=== PATIENT | male | born 1960 | race Caucasian/White ===

== ENCOUNTER 2017-03-14 09:41 | Inpatient (IN) | payer OTHER ==
[~2017-03-14] VITALS: Ht 177.8 cm; Wt 92.1 kg
[2017-03-14 10:29] LABS: EOSINOPHIL (%) 0.2 % (0-5); HEMATOCRIT 43.6 % (38.0-50.0); IMMATURE GRANULOCYTE (%) 0.4 % (0.0-0.7); INSTRUMENT ABS NEUTROPHIL CT 6.9 K/uL; LYMPHOCYTE COUNT 2.2 K/uL (1.0-2.8); MCH 29.8 PG (29.0-34.0); MCHC 36.5 G/DL (30.0-36.0); MCV 81.6 FL (86-99); MEAN PLAT.VOLUME 12.4 uM^3 (9.0-12.4); MONOCYTE (%) 6.5 % (3-12); MONOCYTE COUNT 0.6 K/uL (0-0.8); NEUTROPHIL (%) 70.6 % (45-76); NEUTROPHIL COUNT 6.9 K/uL (1.8-6.4); PLATELET COUNT 207 K/uL (156-360); RBC DIS.WIDTH-CV 11.6 % (11.8-14.6); RBC DIS.WIDTH-SD 33.7 % (39-53); RED BLOOD COUNT 5.34 M/uL (4.00-5.50); WHITE BLOOD COUNT 9.8 K/uL (4.1-10.2)
[2017-03-14 10:38] LABS: CHLORIDE 90 mEq/L (99-109); POTASSIUM 3.3 mEq/L (3.7-5.4); SODIUM 136 mEq/L (136-147)
[2017-03-14 10:42] LABS: ANION GAP 23 MEQ/L (2-14)
[2017-03-14 10:43] LABS: GLUCOSE 658 mg/dL (70-99); TOTAL BILIRUBIN 1.1 mg/dL (0.0-1.0)
[2017-03-14 10:44] LABS: ALKALINE PHOSPHATASE 52 IU/L (3-129); GFR ESTIMATE (CALCULATED) 44 mL/min/
[2017-03-14 10:45] LABS: UREA NITROGEN (BUN) 29 mg/dL (9-23)
[2017-03-14 10:47] LABS: TROP-I INTERPRETATION NEGATIVE; TROPONIN-I < 0.01 ng/mL (0.0-0.30)
[2017-03-14] MEDS ORDERED: BENTYL20 MG PO (11:16)
[2017-03-14] MEDS ORDERED: FENOFIBRATE145 M1 PO (11:16)
[2017-03-14] MEDS ORDERED: ZESTORETIC 20-1 EAC1 PO (11:17)
[2017-03-14] MEDS ORDERED: TAMSULOSIN HCL0.4 MG PO (11:17)
[2017-03-14] MEDS ORDERED: GABAPENTIN300 MG PO (11:18)
[2017-03-14] MEDS ORDERED: ROSUVASTATIN CAL5 MG PO (11:18)
[2017-03-14] MEDS ORDERED: SERTRALINE HCL100 MG PO (11:18)
[2017-03-14] MEDS ORDERED: FISH OIL 1,001000 M2 PO (11:19)
[2017-03-14 11:30] LABS: ADD MIUA? NO; BILIRUBIN NEGATIVE; BLOOD NEGATIVE; COLOR YELLOW ((YELLOW)); GLUCOSE (STRIP) >=500; KETONES 20; LEUKOCYTES NEGATIVE; NITRITE NEGATIVE; PROTEIN (STRIP) NEGATIVE; SPECIFIC GRAVITY 1.027 (1.000-1.030); UCUL ADDED? NO; UROBILINOGEN 0.2 MG/DL (0.2-1.0)
[2017-03-14 13:31] LABS: HDL CHOLESTEROL 27 MG/DL (Desirable>=40); NON-HDL CHOLESTEROL 132 mg/dL (Desirable<160); TOTAL CHOLESTEROL 159 mg/dL (Desirable<200); TRIGLYCERIDES 616 MG/DL (Normal: <150)
[2017-03-14 13:53] LABS: Estimated Average Glucose 235 mg/dL (70-123); HEMOGLOBIN A1c (GLYCOHEMOGLOB) 9.8 % HGB (Below 5.7)
[2017-03-14 15:34] VITALS: BP 136/74
[2017-03-14 20:17] VITALS: BP 121/59
[2017-03-15] VITALS (8 sets, daily range): BP systolic 99–136; BP diastolic 51–83
[2017-03-15 07:35] LABS: ANION GAP 9 MEQ/L (2-14); CHLORIDE 100 MEQ/L (99-109); POTASSIUM 3.1 MEQ/L (3.7-5.4); SAMPLE HEMOLYSIS CHECK 0; SAMPLE ICTERIC CHECK 0; SAMPLE LIPEMIA CHECK 0; SODIUM 139 MEQ/L (136-147); UREA NITROGEN (BUN) 25 mg/dL (9-23)
[2017-03-15 07:41] LABS: GFR ESTIMATE (CALCULATED) > 59 mL/min/; GLUCOSE 253 mg/dL (70-99)
[2017-03-15 07:46] LABS: POINT-OF-CARE METER ID UU14174225
[2017-03-15 07:56] LABS: HEMATOCRIT 33.7 % (38.0-50.0); MCH 29.7 PG (29.0-34.0); MCHC 35.9 G/DL (30.0-36.0); MCV 82.6 FL (86-99); RBC DIS.WIDTH-CV 11.6 % (11.8-14.6); RBC DIS.WIDTH-SD 34.4 % (39-53)
[2017-03-15 07:58] LABS: RED BLOOD COUNT 4.08 M/uL (4.00-5.50); WHITE BLOOD COUNT 6.8 K/uL (4.1-10.2)
[2017-03-15 09:30] LABS: MEAN PLAT.VOLUME 12.4 uM^3 (9.0-12.4); PLAT.SUFFICIENCY ADEQUATE
[2017-03-15 09:32] LABS: PLATELET COUNT 143 K/uL (156-360)
[2017-03-16 04:00] VITALS: BP 121/73
[2017-03-16 07:37] VITALS: BP 169/79
[2017-03-16 08:15] LABS: POINT-OF-CARE METER ID UU14188625
[2017-03-16 09:10] LABS: ANION GAP 8 MEQ/L (2-14); CHLORIDE 101 MEQ/L (99-109); GFR ESTIMATE (CALCULATED) > 59 mL/min/; GLUCOSE 225 mg/dL (70-99); POTASSIUM 3.1 MEQ/L (3.7-5.4); SAMPLE HEMOLYSIS CHECK 0; SAMPLE ICTERIC CHECK 0; SAMPLE LIPEMIA CHECK 0; SODIUM 138 MEQ/L (136-147); UREA NITROGEN (BUN) 21 mg/dL (9-23)
[2017-03-16 10:49] LABS: MAGNESIUM 1.8 mg/dl (1.3-2.7)
[2017-03-16 11:37] VITALS: BP 131/84
[2017-03-16 14:58] VITALS: BP 137/76
[2017-03-16 15:00] LABS: POINT-OF-CARE METER ID UU14188625
[2017-03-16 21:21] VITALS: BP 145/84
[2017-03-16 23:16] VITALS: BP 124/67
[2017-03-17 01:52] LABS: POINT-OF-CARE METER ID UU14174225
[2017-03-17 07:29] VITALS: BP 99/58
[2017-03-17 11:31] VITALS: BP 131/71
[2017-03-17] MEDS ORDERED: METFORMIN HCL500 MG PO (11:45)
[2017-03-17] MEDS ORDERED: PRAVASTATIN SOD40 MG PO (11:45)
[2017-03-17] MEDS ORDERED: NOVOLOG PE100 UNITS/ SC (11:45)
[2017-03-17] MEDS ORDERED: AMLODIPINE BESYL5 MG PO (11:45)
[2017-03-17] MEDS ORDERED: K-DUR20 MEQ PO (11:45)
[2017-03-17] MEDS ORDERED: LEVEMIR100 UNIT/2 SC (11:45)
[2017-03-17 12:19] LABS: POINT-OF-CARE METER ID UU13113702
[2017-03-17 12:19] LABS: POINT-OF-CARE METER ID UU14188625
[2017-03-17 12:19] LABS: POINT-OF-CARE METER ID UU13113778
== END 2017-03-17 15:30 | disposition home or self-care (01) | DRG 638 ==
LOC: EME 09:41 → 5SOUTH 11:29 → EDOF 11:29 → 5SOUTH 14:04
PROVIDERS: Emergency Medicine; Hospitalist; Internal Medicine; Physician Assistant Medical
DX: E11.00 Type 2 diabetes mellitus with hyperosmolarity without nonketotic hyperglycemic-hyperosmolar coma (NKHHC) (principal); N17.9 Acute kidney failure, unspecified; I10 Essential (primary) hypertension; E78.5 Hyperlipidemia, unspecified; F32.9 Major depressive disorder, single episode, unspecified; E87.6 Hypokalemia; N40.0 Benign prostatic hyperplasia without lower urinary tract symptoms; Z88.0 Allergy status to penicillin; E86.9 Volume depletion, unspecified
CPT/HCPCS: 71020; 80048; 80053; 80061; 81003; 82800; 82948; 83036; 83735; 84132 91; 84484; 85025; 85027; 93005; 99281; 99285; J1644; J1815; J7030